=== PATIENT | female | born 1945 | race Caucasian/White ===

== ENCOUNTER → 2020-01-22 | Outpatient (CLI) | payer MEDICARE ==
[2020-01-22 11:56] LABS: INR 1.35 (0.85-1.15); PROTHROMBIN TIME 14.4 SEC (9.6-11.6)
== END | disposition home or self-care (01) ==
LOC: LAB 10:21
PROVIDERS: ATTEND Nurse Practitioner
DX: Z79.01 Long term (current) use of anticoagulants (principal)
CPT/HCPCS: 36415; 85610